=== PATIENT | male | born 1980 | race Caucasian/White ===

== ENCOUNTER 2016-10-10 20:56 | Emergency (ER) | payer SELFPAY | END 2016-10-10 22:12 | disposition home or self-care (01) | LOC: ER 20:56 | DX: M25.561 Pain in right knee (principal); M54.2 Cervicalgia; V47.0XXA Car driver injured in collision with fixed or stationary object in nontraffic accident, initial encounter; Y92.413 State road as the place of occurrence of the external cause | CPT/HCPCS: 72125; 73564; 99284; 99284-25 ==